=== PATIENT | male | born 1990 | race American Indian/Alaskan Native ===

== ENCOUNTER 2016-11-30 14:18 | Emergency (ER) | payer OTHER ==
[2016-11-30 14:26] VITALS: BP 139/81
[2016-11-30] MEDS ORDERED: XYLOCAINE 2%/ EPI 1:200,000 INFILTRATI ONE (15:25)
[2016-11-30] MEDS ORDERED: SODIUM CHLORIDE FLUSH SYRINGE 10 ML IV PRN (15:26)
--- NOTE | 2016-11-30 15:27 | Emergency Department Report ---
- General Chief Complaint: Wound/Laceration Stated Complaint: LEFT LEG LACERATION Time Seen by Provider: 11/30/16 15:21 Source: patient Mode of arrival: Ambulatory Limitations: No Limitations - History of Present Illness Initial Comments: 26-year-old male came in for wound laceration that is approximately 9 cm in his left calf. Patient stated this is due to a straight razor blade that was stuck on his right shoe, and occurrence occurred after his right shoe came close to the left calf. Wound was covered with a 4 x 4 area. Patient's pain level is 8 out of 10. Denies any swelling, numbness, or tingling in lower extremities. Patient does not appear in any distress and nontoxic in appearance. Patient alert and oriented 3. Location: other (left calf) Extremity Location: Left: Lower Leg (calf area) Place: work Patient Tetanus UTD: No (patient stated does not know last tetanus shot.) Context: accidental (while working with a razor blade that was on the floor) Associated Symptoms: pain. denies: loss of feeling/numbness, suspect foreign body present, unable to move injured part, weakness followed by dizziness, nausea/vomiting, fever Treatments Prior to Arrival: other (4 x 4 dressing. No other treatments.) - Related Data Previous Rx's Medication Instructions Recorded Last Taken Type Cephalexin [Keflex] 500 mg PO Q12HR #10 cap 11/30/16 Unknown Rx Naproxen [Naprosyn TAB] 375 mg PO PRN #30 tablet 11/30/16 Unknown Rx Allergies Allergy/AdvReac Type Severity Reaction Status Date / Time No Known Allergies Allergy Verified 11/30/16 14:26 ED Review of Systems ROS: Stated complaint: LEFT LEG LACERATION Other details as noted in HPI Comment: All other systems reviewed and negative Constitutional: denies: chills, fever Eyes: denies: eye pain, eye discharge, vision change ENT: denies: ear pain, throat pain Respiratory: denies: cough, shortness of breath, wheezing Cardiovascular: denies: chest pain, palpitations Endocrine: no symptoms reported Gastrointestinal: denies: abdominal pain, nausea, diarrhea Genitourinary: denies: urgency, dysuria Musculoskeletal: denies: back pain, joint swelling, arthralgia Skin: other (9 cm laceration of the left calf). denies: rash, lesions, change in color, change in hair/nails, pruritus Neurological: denies: headache, weakness, paresthesias Psychiatric: denies: anxiety, depression Hematological/Lymphatic: denies: easy bleeding, easy bruising ED Past Medical Hx - Past Medical History Previous Medical History?: Yes Hx Asthma: Yes - Surgical History Past Surgical History?: Yes Additional Surgical History: hernia - Social History Smoking Status: Never Smoker Substance Use Type: Alcohol - Medications Home Medications: Home Medications Medication Instructions Recorded Confirmed Last Taken Type Cephalexin [Keflex] 500 mg PO Q12HR #10 cap 11/30/16 Unknown Rx Naproxen [Naprosyn TAB] 375 mg PO PRN #30 tablet 11/30/16 Unknown Rx ED Physical Exam - General Limitations: No Limitations General appearance: alert, in no apparent distress - Head Head exam: Present: atraumatic, normocephalic - Eye Eye exam: Present: normal appearance - ENT ENT exam: Present: mucous membranes moist - Neck Neck exam: Present: normal inspection - Respiratory Respiratory exam: Present: normal lung sounds bilaterally. Absent: respiratory distress - Cardiovascular Cardiovascular Exam: Present: regular rate, normal rhythm. Absent: systolic murmur, diastolic murmur, rubs, gallop - GI/Abdominal GI/Abdominal exam: Present: soft, normal bowel sounds - Extremities Exam Extremities exam: Present: normal inspection, full ROM, normal capillary refill. Absent: tenderness, pedal edema, joint swelling, calf tenderness - Expanded Lower Extremity Exam Left Hip exam: Present: normal inspection Upper Leg exam: Present: normal inspection Knee exam: Present: normal inspection Lower Leg exam: Present: normal inspection, full ROM, tenderness, laceration (9 cm left calf). Absent: swelling, ecchymosis, deformity, dislocation, erythema, palpable cord, Jamir's sign Ankle exam: Present: normal inspection Foot/Toe exam: Present: normal inspection Neuro vascular tendon exam: Present: no vascular compromise Gait: Positive: observed and normal - Back Exam Back exam: Present: normal inspection - Neurological Exam Neurological exam: Present: alert, oriented X3 - Psychiatric Psychiatric exam: Present: normal affect, normal mood - Skin Skin exam: Present: warm, dry, intact, normal color. Absent: rash ED Course Vital Signs 11/30/16 11/30/16 14:23 17:23 Temperature 98.9 F Pulse Rate 99 H 62 Respiratory 16 18 Rate Blood Pressure 139/81 O2 Sat by Pulse 98 97 Oximetry Vital Signs 11/30/16 11/30/16 14:23 17:23 Temperature 98.9 F Pulse Rate 99 H 62 Respiratory 16 18 Rate Blood Pressure 139/81 O2 Sat by Pulse 98 97 Oximetry - Reevaluation(s) Reevaluation #1: 11/30/16 16:56 Patient tolerated procedure well. Denies any shortness of breath chest pain. Nontoxic appearance. - Laceration /Wound Repair Left Calf Wound Location: lower extremity (left calf) Wound Length (cm): 9 Wound's Depth, Shape: superficial Wound Explored: clean Betadine Prep?: Yes Anesthesia: 1% Lidocaine (with epi 1-200,000) Volume Anesthetic (ccs): 12 Wound Debrided: minimal Wound Repaired With: sutures Suture Size/Type: 3:0, proline Number of Sutures: 13 Sterile Dressing Applied?: Yes Progress: Under sterile procedure, I used betadine to clean the area. I injected 12 mL of 1% with epi to 1:200,000. I used normal saline flush to irrigate wound. I then used a 3-0 proline to suture the 9cm laceration in left calf area. Total number of sutures is 13. Patient tolerated procedure well. No immediate complications. No signs of distress or toxic appearance. ED Medical Decision Making - Medical Decision Making ED course: This is a 26-year-old male that presents with left calf 9 cm laceration. 1- Patient received PO [place] for pain. 2- patient receives tetanus booster. 3- Under sterile procedure, I sutured laceration with 3-0 proline. Patient tolerated well. 4- I instructed the patient to return in 10-14 days for suture removal. 5-Keep area clean and dry for about 24-48 hours 6-Patient does not appear any signs of distress or toxic appearance Critical care attestation.: If time is entered above; I have spent that time in minutes in the direct care of this critically ill patient, excluding procedure time. ED Disposition Clinical Impression: Laceration Disposition: DISCHARGED TO HOME OR SELFCARE Is pt being admited?: No Does the pt Need Aspirin: No Condition: Stable Instructions: Naproxen (By mouth), Suture Care (ED) Additional Instructions: Please keep area dry and clean for 24 hours. Please follow up with her primary care doctor in 3-5 days Please return to emergency room in 10-14 days for suture removal. Take antibiotics as prescribed. Prescriptions: Cephalexin [Keflex] 500 mg PO Q12HR #10 cap Naproxen [Naprosyn TAB] 375 mg PO PRN #30 tablet Referrals: PRIMARY CARE,MD [Primary Care Provider] - 3-5 Days [facility] [Outside] - 3-5 Days [facility] [Outside] - 3-5 Days
[2016-11-30] MEDS ORDERED: NORCO 5/325 PO ONE (16:10)
[2016-11-30] MEDS ORDERED: TENIVAC IM ONE (16:55)
[2016-11-30] MEDS ORDERED: BOOSTRIX IM ONE (16:59)
== END 2016-11-30 17:31 | disposition home or self-care (01) ==
LOC: ED 14:18
DX: S81.812A Laceration without foreign body, left lower leg, initial encounter (principal); J45.909 Unspecified asthma, uncomplicated; W45.8XXA Other foreign body or object entering through skin, initial encounter; Y93.9 Activity, unspecified; Y92.9 Unspecified place or not applicable; Y99.9 Unspecified external cause status
CPT/HCPCS: 90471; 90715; 99282

== ENCOUNTER 2016-12-15 07:41 | Emergency (ER) | payer OTHER ==
--- NOTE | 2016-12-15 09:03 | Emergency Department Report ---
HPI - General Chief Complaint: Laceration/Recheck/Suture Time Seen by Provider: 12/15/16 08:48 ED Past Medical Hx - Past Medical History Previous Medical History?: Yes Hx Asthma: Yes - Surgical History Past Surgical History?: Yes Additional Surgical History: hernia - Social History Smoking Status: Former Smoker Substance Use Type: Prescribed - Medications Home Medications: Home Medications Medication Instructions Recorded Confirmed Last Taken Type Cephalexin [Keflex] 500 mg PO Q12HR #10 cap 11/30/16 Unknown Rx Naproxen [Naprosyn TAB] 375 mg PO PRN #30 tablet 11/30/16 Unknown Rx ED Review of Systems ROS: Stated complaint: STITCHES REMOVED Other details as noted in HPI Physical Exam - Physical Exam Vital Signs: Vital Signs 12/15/16 08:22 Temperature 97.6 F Pulse Rate 70 Respiratory 16 Rate Blood Pressure 133/86 O2 Sat by Pulse 100 Oximetry ED Course Vital Signs 12/15/16 08:22 Temperature 97.6 F Pulse Rate 70 Respiratory 16 Rate Blood Pressure 133/86 O2 Sat by Pulse 100 Oximetry Critical care attestation.: If time is entered above; I have spent that time in minutes in the direct care of this critically ill patient, excluding procedure time. ED Disposition Condition: Stable Referrals: PRIMARY CARE, [Primary Care Provider] - 3-5 Days
--- NOTE | 2016-12-15 09:11 | Emergency Department Report ---
Suture/Staple Removal - [facility] Chief Complaint: Laceration/Recheck/Suture Stated Complaint: STITCHES REMOVED Time Seen by Provider: 12/15/16 08:48 When Sutures or [place] Placed: >14 Days Ago Wound Location: left medial aspect of lower leg ED Review of Systems ROS: Stated complaint: STITCHES REMOVED Other details as noted in HPI Constitutional: denies: chills, fever Eyes: denies: eye pain, eye discharge, vision change ENT: denies: ear pain, throat pain Respiratory: denies: cough, shortness of breath, wheezing Cardiovascular: denies: chest pain, palpitations Endocrine: no symptoms reported Gastrointestinal: denies: abdominal pain, nausea, diarrhea Genitourinary: denies: urgency, dysuria Musculoskeletal: denies: back pain, joint swelling, arthralgia Skin: other (stitches on leg). denies: rash, lesions, pruritus Neurological: denies: headache, weakness, paresthesias Psychiatric: denies: anxiety, depression Hematological/Lymphatic: denies: easy bleeding, easy bruising ED Past Medical Hx - Past Medical History Previous Medical History?: Yes Hx Asthma: Yes - Surgical History Past Surgical History?: Yes Additional Surgical History: hernia - Social History Smoking Status: Former Smoker Substance Use Type: Prescribed - Medications Home Medications: Home Medications Medication Instructions Recorded Confirmed Last Taken Type Cephalexin [Keflex] 500 mg PO Q12HR #10 cap 11/30/16 Unknown Rx Naproxen [Naprosyn TAB] 375 mg PO PRN #30 tablet 11/30/16 Unknown Rx Suture Removal Exam - Exam General: Vital signs noted. No distress. Alert and acting appropriately. Wound: No Pathologic Erythema, No Tenderness, No Drainage, No Pus, No Wound Dehiscence Other Systems: All other systems reviewed and are unremarkable. ED Course Vital Signs 12/15/16 08:22 Temperature 97.6 F Pulse Rate 70 Respiratory 16 Rate Blood Pressure 133/86 O2 Sat by Pulse 100 Oximetry ED Recheck MDM - Medical Decision Making 26-year-old male presents for suture removal. 11 single stitches removed from left medial lower leg. Patient tolerated procedure well. Discussed the patient continue the topical Neosporin to wound. Patient vital signs are stable patient is in no distress. Discussed the patient will follow-up as referred Critical care attestation.: If time is entered above; I have spent that time in minutes in the direct care of this critically ill patient, excluding procedure time. ED Disposition Clinical Impression: Encounter for removal of sutures Disposition: DISCHARGED TO HOME OR SELFCARE Is pt being admited?: No Does the pt Need Aspirin: No Condition: Stable Instructions: Acute Wound Care (ED) Referrals: PRIMARY CARE, [Primary Care Provider] - 3-5 Days [facility] [Outside] - 3-5 Days [facility] [Outside] - 3-5 Days [facility] [Outside] - 3-5 Days Forms: Work/School Release Form(ED) Time of Disposition: 09:10
[2016-12-15 09:43] VITALS: BP 126/82
== END 2016-12-15 09:38 | disposition home or self-care (01) ==
LOC: ED 07:41
DX: S81.812D Laceration without foreign body, left lower leg, subsequent encounter (principal); Z48.02 Encounter for removal of sutures; J45.909 Unspecified asthma, uncomplicated; Z87.891 Personal history of nicotine dependence

== ENCOUNTER 2020-05-10 11:44 | Emergency (ER) | payer OTHER ==
[2020-05-10] MEDS ORDERED: ACETAMINOPHEN 325 MG TAB PO ONE (12:19)
--- NOTE | 2020-05-10 12:31 | Emergency Department Report ---
HPI - General Chief Complaint: Headache Time Seen by Provider: 05/10/20 12:18 - HPI HPI: This is a 30-year-old male who presents to the emergency department with a complaint of a 2-day history of a right-sided headache and some sweats. He denies any vision change, slurred speech, numbness or paresthesias, shortness of breath, cough, chest pain, nausea or vomiting, or any neurological deficits. No past medical history. Patient took some Tylenol about 1 hour prior to presentation with some mild relief. Currently his headache is about a 2 out of 10 in intensity. The patient came to the emergency department because he says that he has no history of previous headaches, so this was concerning to him. No recent travel or sick contacts at home. No known exposure to anyone with Covid 19. ED Past Medical Hx - Past Medical History Hx Asthma: Yes - Surgical History Additional Surgical History: hernia - Social History Smoking Status: Current Every Day Smoker Substance Use Type: Alcohol, Marijuana - Medications Home Medications: Home Medications Medication Instructions Recorded Confirmed Last Taken Type Naproxen [Naprosyn TAB] 375 mg PO PRN #30 tablet 11/30/16 Unknown Rx cephALEXin [Keflex] 500 mg PO Q12HR #10 cap 11/30/16 Unknown Rx ED Review of Systems ROS: Stated complaint: HEADACHES/SWEATS/WEAK Other details as noted in HPI Comment: All other systems reviewed and negative Constitutional: diaphoresis. denies: weakness Eyes: denies: eye pain, vision change ENT: denies: ear pain, throat pain Respiratory: denies: cough, shortness of breath Cardiovascular: denies: chest pain, palpitations Gastrointestinal: denies: abdominal pain, vomiting Genitourinary: denies: dysuria, discharge Musculoskeletal: denies: back pain, arthralgia Skin: denies: rash, lesions Neurological: headache. denies: weakness, numbness Physical Exam - Physical Exam Vital Signs: Vital Signs 05/10/20 11:48 Temperature 100.5 F H Pulse Rate 104 H Respiratory 18 Rate Blood Pressure 130/87 O2 Sat by Pulse 96 Oximetry Physical Exam: GENERAL: The patient is well-developed well-nourished. HENT: Normocephalic. Atraumatic. Patient has moist mucous membranes. EYES: Extraocular motions are intact. No nystagmus. NECK: Supple. Trachea is midline. CHEST/LUNGS: Clear to auscultation. There is no respiratory distress noted. HEART/CARDIOVASCULAR: Regular. There is no tachycardia. There is no murmur. ABDOMEN: Abdomen is soft, nontender. Patient has normal bowel sounds. There is no abdominal distention. SKIN: Skin is warm and dry. NEURO: The patient is awake, alert, and oriented. The patient is cooperative. The patient has no focal neurologic deficits. Normal speech. Cranial nerves II through XII grossly intact. No pronator drift. No dysmetria. MUSCULOSKELETAL: There is no tenderness or deformity. There is no limitation range of motion. ED Course Vital Signs 05/10/20 11:48 Temperature 100.5 F H Pulse Rate 104 H Respiratory 18 Rate Blood Pressure 130/87 O2 Sat by Pulse 96 Oximetry ED Medical Decision Making - Radiology Data Radiology results: report reviewed CT head/brain wo con INDICATION: Headache. TECHNIQUE: Routine CT head. All CT scans at this location are performed using CT dose reduction for [place] by means of automated exposure control. COMPARISON: None. FINDINGS: Intracranial: Sheets- white matter differentiation is maintained. No intracranial hemorrhage. No extra axial collection.. No hydrocephalus. No herniation. Sinuses: Paranasal sinuses and mastoid air cells are essentially clear. Orbits: Globes are intact. Calvarium: No acute fracture. IMPRESSION: 1. No acute intracranial abnormality. - Medical Decision Making This patient presents with a 2-day history of a headache and sweats. He does present with a low-grade fever of 100.5 F. He denies any other cough, s hortness of breath, rash, dysuria, abdominal pain. On examination he does not have any focal, motor or sensory deficits and his cranial nerves are intact. CT scan of the head without contrast does not show any bleed, shift, mass, ischemia, or any other acute process. The patient's fever resolved with the Tylenol that he took himself prior to presentation, but he was given some ibuprofen to treat his headache. It may have been coincidental that the patient had a headache and a low-grade fever. However, given the current pandemic, the patient was instructed to act as if he could have COVID-19. I am unable to test him for Covid 19 at this time. He was instructed to isolate/quarantine and seek outpatient Covid 19 testing. He will return to the emergency department with any worsening of his symptoms or with any acute distress. Critical Care Time: No Critical care attestation.: If time is entered above; I have spent that time in minutes in the direct care of this critically ill patient, excluding procedure time. ED Disposition Clinical Impression: Headache Qualifiers: Headache type: unspecified Headache chronicity pattern: unspecified pattern Intractability: not intractable Qualified Code(s): R51 - Headache Fever Qualifiers: Fever type: unspecified Qualified Code(s): R50.9 - Fever, unspecified Disposition: DC-01 TO HOME OR SELFCARE Is pt being admited?: No Condition: Stable Instructions: Fever in Adults (ED), Acute Headache (ED) Additional Instructions: Please follow-up with a primary care physician in the next few days. Return to the emergency department with any worsening of your symptoms or with any acute distress. You can take Tylenol every 4-6 hours and ibuprofen every 6-8 hours, using the dosing on the back of the bottle, as needed for fever or discomfort. Given the current pandemic, without a obvious source for your fever, COVID-19 should be considered as a possibility. Unfortunately I am unable to test you for Covid 19 at this time. I recommend that you seek outpatient Covid 19 testing. This can be done at some primary care physicians offices, some urgent cares, and there should be a listing of testing facilities through the [place] Department of Health. In the meantime, please isolate/quarantine and stay away from anybody who is immunocompromised, elderly, or chronically ill. Referrals: JUAN MERRITT MD [Primary Care Provider] - 3-5 Days NURA HANSON MD [Staff Physician] - 3-5 Days [facility] [Provider Group] - 3-5 Days Time of Disposition: 13:40
[2020-05-10 12:39] VITALS: BP 129/90
--- NOTE | 2020-05-10 13:34 | Cat Scan Report ---
CT head/brain wo con INDICATION: Headache. TECHNIQUE: Routine CT head. All CT scans at this location are performed using CT dose reduction for [place] by means of automated exposure control. COMPARISON: None. FINDINGS: Intracranial: Sheets-white matter differentiation is maintained. No intracranial hemorrhage. No extra a xial collection.. No hydrocephalus. No herniation. Sinuses: Paranasal sinuses and mastoid air cells are essentially clear. Orbits: Globes are intact. Calvarium: No acute fracture. IMPRESSION: 1. No acute intracranial abnormality. Signer Name: Rosendo Velazquez MD Signed: 05/10/2020 1:30 PM Workstation Name: [id number]
[2020-05-10] MEDS ORDERED: IBUPROFEN 800 MG TAB PO ONE (13:37)
== END 2020-05-10 14:21 | disposition home or self-care (01) ==
LOC: ED 11:44
DX: R51 Headache (principal); R50.9 Fever, unspecified; J45.909 Unspecified asthma, uncomplicated; F17.200 Nicotine dependence, unspecified, uncomplicated; F12.10 Cannabis abuse, uncomplicated; Z98.890 Other specified postprocedural states; Z79.899 Other long term (current) drug therapy
CPT/HCPCS: 70450